=== PATIENT | female | born 1995 | race Asian ===

== ENCOUNTER 2023-12-16 08:00 | Outpatient (CLI) | payer OTHER ==
[2023-12-16 18:40] LABS: BILIRUBIN,URINE NEGATIVE (NEGATIVE); GLUCOSE, URINE (UA) NEGATIVE (NEGATIVE); KETONES,URINE (UA) NEGATIVE (NEGATIVE); LEUKOCYTE ESTERASE, URINE TRACE (NEGATIVE); NITRITE,URINE NEGATIVE (NEGATIVE); OCCULT BLOOD,URINE NEGATIVE (NEGATIVE); PH,URINE 6.5 PH (5.0-7.5); PROTEIN,URINE TRACE mg/dL (NEGATIVE); UROBILINOGEN,URINE 0.2 (NORMAL) E.U./dL (NORMAL)
[2023-12-16 18:47] LABS: CLARITY,URINE CLEAR (CLEAR)
[2023-12-16 19:14] LABS: BACTERIA,URINE Rare /HPF (None Seen); CRYSTALS,URINE 6-10 Calcium Oxalate /LPF; MUCUS,URINE Moderate Strands; RBC,URINE 0-5 /HPF (0-5); SQUAMOUS EPITHELIAL CELL,UR FEW Squamous (<= Few); WBC,URINE 0-3 /HPF (0-5)
== END 2023-12-16 23:59 | disposition home or self-care (01) ==
LOC: LAB.WC 08:00
PROVIDERS: ATTEND Nurse Practitioner
DX: Z34.90 Encounter for supervision of normal pregnancy, unspecified, unspecified trimester (principal)
CPT/HCPCS: 81001; 87086

== ENCOUNTER 2023-12-22 14:40 | Outpatient (CLI) | payer OTHER ==
[2023-12-22 18:22] LABS: BASOPHILS # (AUTO) 0.1 10^3/uL (0.0-0.1); BASOPHILS % (AUTO) 0.7 %; EOSINOPHILS # (AUTO) 0.1 10^3/uL (0.0-0.7); HCT - HEMATOCRIT 40.4 % (37.0-47.0); HGB - HEMOGLOBIN 13.7 g/dL (12.0-16.0); LYMPHOCYTES # (AUTO) 2.3 10^3/uL (1.5-3.5); LYMPHOCYTES % (AUTO) 20.1 %; MEAN CORPUSCULAR HEMOGLOBIN 28.3 pg (27.0-31.0); MEAN CORPUSCULAR HGB CONC 33.9 g/dL (32.0-36.0); MEAN CORPUSCULAR VOLUME 83.5 fL (81.0-99.0); MEAN PLATELET VOLUME 9.8 fL (7.9-10.8); MONOCYTES # (AUTO) 0.9 10^3/uL (0.0-1.0); MONOCYTES % (AUTO) 8.2 %; NEUTROPHILS # (AUTO) 7.9 10^3/uL (1.5-6.6); NEUTROPHILS % (AUTO) 69.5 %; PLT - PLATELET COUNT 435 10^3/uL (130-450); RED BLOOD COUNT 4.84 10^6/uL (4.20-5.40); RED CELL DISTRIBUTION WIDTH 11.9 % (12.0-15.0); WHITE BLOOD COUNT 11.4 x10^3/uL (4.8-10.8)
== END 2023-12-22 14:41 | disposition home or self-care (01) ==
LOC: LAB.N 14:40
PROVIDERS: ATTEND Nurse Practitioner
DX: Z34.90 Encounter for supervision of normal pregnancy, unspecified, unspecified trimester (principal)
CPT/HCPCS: 36415; 84702; 85025; 86592; 86762; 86787; 86803; 86850; 86900; 86901; 87340; 87389

== ENCOUNTER 2023-12-23 08:50 | Outpatient (CLI) | payer OTHER ==
--- NOTE | 2023-12-23 10:27 | Ultrasound Report ---
PROCEDURE: OB 1st Trimester w/TV INDICATIONS: SUPERVISION OF NORMAL OUTSIDE/PRIOR DATING DATA: Last menstrual period (LMP): 10/20/2023. LMP-based estimated date of delivery (HARSH): 07/26/2024. First dating scan (date and location): 12/23/2023. Estimated date of delivery (HARSH) from first dating scan: 07/25/2024. TECHNIQUE: Real-time scanning was performed of the fetus and maternal pelvic organs, with image documentation. Endovaginal scanning was also performed to better visualize the fetus and maternal ovaries. COMPARISON: None. FINDINGS: Intrauterine gestational sac present. Embryo: Present, measuring 2.5 cm, corresponding to 9 weeks 2 days Heart rate: 182 bpm. Other: No perigestational fluid collection. Measurement variability in dating: +/- 4 weeks by LMP, +/- 7 days by mean sac diameter (use before 6 weeks gestation if crown-rump length not able to be measured), +/- 5 days by crown-rump length (6-12 weeks gestation). Maternal organs: The left ovary contains an anechoic cystic lesion with avascular, hypoechoic compone nts with angulated margins. This measures 5.6 x 3.5 x 4.4 cm. IMPRESSION: Single living intrauterine at 9 weeks 2 days, HARSH of 07/25/2024. Left ovary contains an anechoic cystic lesion with avascular, solid components with angulated margins . Findings favor a hemorrhagic cyst over heterotopic . Correlate with beta hCG and consider short-term follow-up. Reviewed by: Kennedy Garcia MD on 12/23/2023 10:26 AM PDT Approved by: Kennedy Garcia MD on 12/23/2023 10:26 AM PDT Station ID: [id number]
== END 2023-12-23 08:51 | disposition home or self-care (01) ==
LOC: DI 08:50
PROVIDERS: ATTEND Nurse Practitioner
DX: Z34.91 Encounter for supervision of normal pregnancy, unspecified, first trimester (principal); R93.89 Abnormal findings on diagnostic imaging of other specified body structures

== ENCOUNTER 2024-01-16 08:00 | Outpatient (CLI) | payer MEDICAID, OTHER ==
[2024-01-16 21:10] LABS: BACTERIAL VAGINOSIS DNA NEGATIVE (NEGATIVE); CANDIDA GLABRATA DNA NEGATIVE (NEGATIVE); CANDIDA GROUP DNA POSITIVE (NEGATIVE); CANDIDA KRUSEI DNA NEGATIVE (NEGATIVE); TRICHOMONAS VAGINALIS DNA NEGATIVE (NEGATIVE)
[2024-01-17 11:55] LABS: CHLAMYDIA TRACHOMATIS DNA NEGATIVE (NEGATIVE); NEISSERIA GONORRHOEAE DNA NEGATIVE (NEGATIVE)
== END 2024-01-16 23:59 | disposition home or self-care (01) ==
LOC: LAB.WC 08:00
PROVIDERS: ATTEND Nurse Practitioner
DX: N89.8 Other specified noninflammatory disorders of vagina (principal)
CPT/HCPCS: 81514; 87491; 87591; 87661

== ENCOUNTER 2024-03-16 16:39 | Outpatient (CLI) | payer MEDICAID ==
--- NOTE | 2024-03-18 21:12 | Ultrasound Report ---
PROCEDURE: OB 14+ Weeks INDICATIONS: SUPERVISION OF OUTSIDE/PRIOR DATING DATA: Last menstrual period (LMP): 10/20/2023. LMP-based estimated date of delivery (HARSH): 07/26/2024. First dating scan (date and location): 12/23/2023. Estimated date of delivery (HARSH) from first dating scan: 07/25/2024. The below data below was generated using the working HARSH of 07/25/2024 TECHNIQUE: Real-time scanning was performed of the fetus, with image documentation and biometric measurements. Endovaginal scanning: Not performed. COMPARISON: 12/23/2023, 12/30/2023 FINDINGS: General: A single living intrauterine gestation is present. Presentation: Breech Placenta: Placental position is posterior, without previa. Amniotic fluid index: 12.1 cm, 22% for gestational age. heart rate: 153 beats per minute. Maternal cervical canal: Closed and measures 5.7 cm long; normal length is 2.5 cm or more. biometrics: Biparietal diameter: 5.01 cm, 21 weeks, 1 day, 43.5% Head circumference: 19.1 cm, 21 weeks, 3 days, 43.3% Abdominal circumference: 15.4 cm, 20 weeks, 4 days, 21.7% Femur length: 3.45 cm, 20 weeks, 6 days, 26.3% Estimated gestational age from initial scan: 21 weeks, 2 days Composite gestational age from present scan: 21 weeks, 1 day Estimated weight and percentile: 377.6 g, 21.2% Measurement variability for biometric dating: +/- 10 days from 12-20 weeks gestation, +/- 2 weeks fro m 20-30 weeks gestation, +/- 3 weeks for 30 weeks gestation or later. Anatomic survey: Neuro: Ventricles are non-dilated at less than 10 mm. Cisterna magna is normal at 3-11 mm. Cerebel lum is normal in size and morphology. Nuchal skin fold: Normal at less than 6 mm between 14-20 weeks gestational age. Face: Nose and lips, facial profile are now well seen due to position. Spine: No evidence for spina bifida. Heart: 4 chamber heart and ventricular outflow tracts are not well seen. Diaphragm: Diaphragm is intact. Stomach: Left-sided stomach is present. Kidneys: No hydronephrosis. Normal is less than 5 mm in 2nd trimester, less than 7 mm in 3rd trimester. Cord: 3-vessel cord has orthotopic insertion. Bladder: Normal in size. Extremities: All 4 extremities are not well evaluated due to position. Patient's known left ovarian cyst is again seen now measures 4.9 x 3.7 x 4.3 cm in size compared to 5 .8 x 3.3 x 4.3 cm in size on previous study. IMPRESSION: 1. Single live intrauterine gestation with fetus in breech presentation. heart rate is 153 bpm. Normal AMOS at 12.1 cm. Estimated weight is at 21.2%. 2. facial profile is, cardiac structures and all 4 extremities are suboptimally evaluated due t o position. Rest of the anatomic survey is normal. 3. Patient's known left ovarian cyst is slightly smaller in size on the current study. Reviewed by: Mark Crouch MD on 03/18/2024 9:10 PM PDT Approved by: Mark Crouch MD on 03/18/2024 9:10 PM PDT Station ID: [id number]
== END 2024-03-16 16:40 | disposition home or self-care (01) ==
LOC: DI 16:39
PROVIDERS: ATTEND Nurse Practitioner
DX: O32.1XX0 Maternal care for breech presentation, not applicable or unspecified (principal); O34.82 Maternal care for other abnormalities of pelvic organs, second trimester; N83.202 Unspecified ovarian cyst, left side; Z3A.21 21 weeks gestation of pregnancy

== ENCOUNTER 2024-07-24 06:48 | Inpatient (IN) ==
[2024-07-24] MEDS ORDERED: hydrALAZINE INJ 20 MG/ML VIAL IVP PRN (07:12)
[2024-07-24] MEDS ORDERED: LACTATED RINGERS 1,000 ML IV PRN (07:12)
[2024-07-24] MEDS ORDERED: NIFEdipine 10 MG CAPSULE PO PRN (07:12)
[2024-07-24] MEDS ORDERED: fentaNYL 100 MCG/2 ML VIAL IVP PRN (07:12)
[2024-07-24] MEDS ORDERED: TERBUTALINE 1 MG/ML VIAL SUBQ PRN (07:12)
[2024-07-24] MEDS ORDERED: METHYLERGONOVINE 0.2 MG/ML VIAL IM PRN (07:12)
[2024-07-24] MEDS ORDERED: TRANEXAMIC ACID IN NACL 1,000 MG/100 ML BAG IV PRN (07:12)
[2024-07-24] MEDS ORDERED: LABETALOL 20 MG/4 ML SYRINGE IVP PRN ×3 (07:12)
[2024-07-24] MEDS ORDERED: lidocaine 1% 20 ML MDV ID PRN (07:12)
[2024-07-24] MEDS ORDERED: SODIUM CHLORIDE FLUSH 0.9% 10 ML SYRINGE IVP PRN (07:12)
[2024-07-24] MEDS ORDERED: ONDANSETRON ODT 4 MG TABLET PO PRN (07:12)
[2024-07-24] MEDS ORDERED: miSOPROStoL 200 MCG TABLET BC PRN (07:12)
[2024-07-24] MEDS ORDERED: miSOPROStoL 200 MCG TABLET PR PRN (07:12)
[2024-07-24] MEDS ORDERED: OXYTOCIN/SODIUM CHLORIDE 500 ML IV PRN (07:12)
[2024-07-24] MEDS ORDERED: CALCIUM CARBONATE CHEW 500 MG TABLET PO PRN (07:12)
[2024-07-24] MEDS ORDERED: ACETAMINOPHEN 500 MG TABLET PO PRN (07:12)
[2024-07-24] MEDS ORDERED: OXYTOCIN 10 UNIT/ML VIAL IM PRN (07:12)
[2024-07-24] MEDS ORDERED: diphenhydrAMINE INJ 50 MG/ML VIAL IVP PRN ×2 (07:12→21:35)
[2024-07-24] MEDS ORDERED: METOCLOPRAMIDE 10 MG/2 ML VIAL IVP PRN ×2 (07:12→21:35)
[2024-07-24] MEDS ORDERED: METOCLOPRAMIDE 10 MG TABLET PO PRN (07:12)
--- NOTE | 2024-07-24 07:58 | HISTORY & PHYSICAL EXAMINATION ---
Admit History Smoking Status: Never smoker NST Procedure NST Procedure: NST Procedure Start Time 00:59 Stop Time 01:26 Meds/Allgy Home Medications Ambulatory Orders Medication Instructions Recorded Confirmed aspirin 81 mg tablet,delayed 81 mg PO QDAY 04/11/24 07/24/24 release fexofenadine 180 mg tablet 180 mg PO QDAY 04/11/24 07/24/24 (Eleanor Allergy) vit no.133-ferrous 1 tab PO ONCE 04/11/24 07/24/24 fumarate 28 mg-folic acid 800 mcg tablet () witch afshan 50 % topical pads 1 pad topical BID PRN skin 04/11/24 07/24/24 (Tucks (witch afshan)) irritation Allergies Allergies Allergy/AdvReac Type Severity Reaction Status Date / Time amoxicillin Allergy Severe Respiratory Verified 07/06/24 15:12 grass pollen Allergy Unknown Respiratory Verified 07/06/24 15:12 [facility] Medical History Medical History (Updated 04/25/24 @ 13:59 by Lauryn Abad) Hypothyroid Ovarian cyst Surgical History Surgical History (Updated 04/25/24 @ 13:59 by Lauryn Abad) History of ankle surgery H/O ovarian cystectomy Family History Family History (System 04/25/24 @ 13:59 by Lauryn Abad) Mother High blood pressure Father High blood pressure Anxiety Maternal grandmother Lung cancer Paternal grandfather Lung cancer CAD (coronary artery disease) Paternal grandmother Osteoporosis Social History Social History (System 04/25/24 @ 13:59 by Lauryn Abad) Smoking Status: Never smoker Do you dip or chew tobacco?: No Plan for Labor Plan For Labor I expect patient to be DC'd or transferred within 96 hours.: Yes Plan for Labor: HPI: Roxann is a 28yo @ 39.5wks gestation who presents to [facility] with c/o continued contractions that have increased in both frequency and intensity over the past 2 days. She presented to [facility] earlier this evening with similar symptoms but states the contractions she is experiencing at this time seem much more intense. She is rating them 10/10 on a pain scale and feels she is getting close to needing an epidural for pain management. She states she has not slept and she is feeling very fatigued and discouraged with the lack of cervical change. She denies vaginal bleeding or leakage of fluid and reports +FM. Upon arrival her cervix is noted to be unchanged from previous exam (/-2) and vertex with intact membranes. Pre- Weight: 149.0 BMI: 24.14 Allergies: Amoxicillin-anaphylaxis RX: Aspirin, Eleanor, Tucks, PNV Medical Hx: Hypothyroidism, Ovarian cyst Surgeries: Ovarian Cysctectomy, ankle surgery Social Hx: Never smoker. No ETOH or IVDA. FMHX: Mother-High blood pressure Father -Anxiety, High blood pressure Maternal grandmother-Lung cancer Paternal grandfather CAD (coronary artery disease); Lung cancer Paternal grandmother Osteoporosis Blood type: O+ Antibody: Negative CBC: PLT 435 HCT 40.4 HGB 13.7 Rubella: Immune VZV: non-immune HBsAg: Neg HepC: NR RPR/AB-EIA: NR HIV: NR PAP: unsure (~2022 WNL, no hx abnormal) GC/CT: 01/16/2024 Negative HSV: denies in self and partner Genetic testing: Declines FAS: 03/18/2024 Placenta: Posterior Cord: 3VC AMOS: 12.1cm EFW: 377.6g 50gm OGCT: 116 TDAP: 05/04/24 Breast Pump: 06/08/2024 RSV: 06/08/2024 3rd trimester PLT 333 HGB 13.2 HCT 40.1 3rd trimester RPR NR GBS: 07/06/2024 Pre- Weight:149.0 BMI: 24.14 Allergies: Amoxicillin RX: Aspirin, Eleanor, Tucks, PNV Surgical hx: Ovarian Cysctectomy, ankle surgery FMHx: Mother-High blood pressure Father -Anxiety, High blood pressure Maternal grandmother-Lung cancer Paternal grandfather CAD (coronary artery disease);Lung cancer Paternal grandmother Osteoporosis Physical Exam: Normocephalic, atraumatic Heart RRR w/o M/G/R Lungs CTAB Abdomen gravid, soft, nontender EFW 3400g FHR baseline 140s, moderate variability, + accels, no decels Contractions palpate mild to moderate every 5--8 minutes with soft resting tone SVE 50/-2, vertex with intact membranes Bilateral LE's no edema Assessment: 28yo @ 39.5wks gestation Early labor GBS positive FHR Category I Plan: Admit to [facility] for active management. Continuous monitoring. Nitrous oxide PRN. Jacuzzi PRN. Epidural per maternal request. Anticipate . Conclusion/Plan Lab Results 07/24/24 07:45 07/24/24 07:45
[2024-07-24 08:03] LABS: BASOPHILS # (AUTO) 0.1 10^3/uL (0.0-0.1); BASOPHILS % (AUTO) 0.3 %; EOSINOPHILS % (AUTO) 0.2 %; HCT - HEMATOCRIT 43.5 % (37.0-47.0); HGB - HEMOGLOBIN 14.4 g/dL (12.0-16.0); LYMPHOCYTES # (AUTO) 1.5 10^3/uL (1.5-3.5); LYMPHOCYTES % (AUTO) 8.9 %; MEAN CORPUSCULAR HEMOGLOBIN 27.4 pg (27.0-31.0); MEAN CORPUSCULAR HGB CONC 33.1 g/dL (32.0-36.0); MEAN CORPUSCULAR VOLUME 82.9 fL (81.0-99.0); MEAN PLATELET VOLUME 10.2 fL (7.9-10.8); MONOCYTES # (AUTO) 0.8 10^3/uL (0.0-1.0); MONOCYTES % (AUTO) 5.1 %; NEUTROPHILS # (AUTO) 14.1 10^3/uL (1.5-6.6); NEUTROPHILS % (AUTO) 84.8 %; PLT - PLATELET COUNT 339 10^3/uL (130-450); RED BLOOD COUNT 5.25 10^6/uL (4.20-5.40); RED CELL DISTRIBUTION WIDTH 13.1 % (12.0-15.0); WHITE BLOOD COUNT 16.6 x10^3/uL (4.8-10.8)
[2024-07-24 08:18] LABS: ALBUMIN 3.7 g/dL (3.2-5.5); ALBUMIN/GLOBULIN RATIO 1.2 (1.0-2.2); BILIRUBIN,TOTAL 0.5 mg/dL (0.2-1.0); CALCIUM 9.1 mg/dL (8.5-10.3); CREATININE 0.5 mg/dL (0.6-1.3); TOTAL PROTEIN 6.9 g/dL (6.4-8.9)
[2024-07-24] MEDS: VANCOMYCIN INJ 2 GM in SODIUM CHLORIDE 0.9% 500 ML IV ONE (12:22)
[2024-07-24] MEDS: FAMOTIDINE 20 MG/2 ML VIAL IVP SCH (12:29)
[2024-07-24] MEDS: SODIUM CHLORIDE FLUSH 0.9% 10 ML SYRINGE IVP SCH (12:29)
--- NOTE | 2024-07-24 12:59 | PROVIDER PROGRESS NOTE ---
Labor Progress Note Uterine Monitoring Uterine Monitoring Mode: positive External toco Contraction Intensity: positive Moderate Monitoring Monitor Mode: positive External ultrasound Heart Rate Baseline: 140 Heart Rate Variability: positive Moderate (6-25 bmp) Accelerations: positive Present, 15x15 Decelerations: positive None Strip Review: positive Category I Vaginal Exam Dilation (in cm): 4 Effacement (%): 80 Station: -1 Cervical Position: Midposition Labor Progress Note Labor Progress Note/Additional Text: S: Roxann is breathing through contractions with use of nitrous oxide for pain management. She is coping well with contractions at this time. She states the contractions eased up for a bit but have now began to increase in intensity over the past hour. Her partner and his mom are both supportive at the bedside. O: FHR baseline 140s, moderate variability, + accels, no decels Contractions palpate moderate every 5-7 minutes with soft resting tone SVE 4/80/-1, vertex AROM occurred and was noted to be a small amount of clear fluid A: 28yo @ 39.5wks gestation Early labor GBS positive FHR Category I P: Continue expectant management. Continuous monitoring. Initiate vancomycin for GBS prophylaxis per protocol (pt is allergic to ampicilin with hx of anaphylaxis). Continue nitrous oxide for pain management. Jacuzzi PRN. Epidural per maternal request. Repeat SVE in 6 hrs or sooner PRN. Anticipate .
--- NOTE | 2024-07-24 14:23 | PHARMACY PROGRESS NOTE ---
Best Possible Medication History Admit Date and Time: 07/24/24 [id number] Home Medications Medication Instructions Recorded Confirmed Type aspirin 81 mg tablet,delayed 81 mg PO DAILY 04/11/24 07/24/24 History release fexofenadine 180 mg tablet 180 mg PO DAILY 04/11/24 07/24/24 History (Eleanor Allergy) vit no.133-ferrous 1 tab PO DAILY 04/11/24 07/24/24 History fumarate 28 mg-folic acid 800 mcg tablet () witch afshan 50 % topical pads 1 pad topical BID PRN skin 04/11/24 07/24/24 History (Tucks (witch afshan)) irritation Processed by: Pharmacy Medications reviewed in ED?: Yes Medication History completed: Yes Patient Interview: Completed Secondary Source(s): Pharmacy records and Insurance records [facility] Statement: As the person ultimately responsible for medication therapy, providers are able to order a medication from an existing home medication list in [facility] via the "Reconcile Routine" prior to Confirmation of that medication by product support consultant. Such practice is discouraged except when the physician, in their clinical judgment, deems that a medical need exists for a medication without regard to p revious use.
[2024-07-24] MEDS: OXYTOCIN/SODIUM CHLORIDE 500 ML IV SCH (16:45)
[2024-07-24] MEDS: LACTATED RINGERS 500 ML IV ONE (20:30)
[2024-07-24] MEDS ORDERED: ROPIVACAINE 0.2% 200 MG/100 ML BAG EP ONE (20:37)
[2024-07-24] MEDS ORDERED: NALBUPHINE 10 MG/ML AMP IVP PRN (21:35)
[2024-07-24] MEDS ORDERED: ONDANSETRON 4 MG/2 ML VIAL IVP PRN (21:35)
[2024-07-24] MEDS ORDERED: ePHEDrine 50 MG/ML VIAL IVP PRN (21:35)
[2024-07-24] MEDS ORDERED: ROPIVACAINE 0.2% 200 MG/100 ML BAG EP PRN (21:35)
[2024-07-24] MEDS ORDERED: NALOXONE 0.4 MG/ML VIAL IVP PRN (21:35)
--- NOTE | 2024-07-24 21:35 | ANESTHESIA PROCEDURE NOTE ---
Pre-Anesthesia VS, & Labs Diagnosis Surgical Diagnosis:: active labor Procedure Procedure: labor epidural Vitals Vital Signs: Temp Pulse Resp BP 36.6 C 89 20 130/83 07/24/24 07:58 07/24/24 07:58 07/24/24 07:58 07/24/24 07:58 NPO NPO: Other (clears) Is Patient ?: Yes Lab Results Current Lab Results: Laboratory Tests 07/24/24 07:45: WBC 16.6 H, RBC 5.25, Hgb 14.4, Hct 43.5, MCV 82.9, MCH 27.4, MCHC 33.1, RDW 13.1, Plt Count 339, MPV 10.2, Neut # (Auto) 14.1 H, Lymph # (Auto) 1.5, Major # (Auto) 0.8, Eos # (Auto) 0.0, Baso # (Auto) 0.1, Absolute Nucleated RBC 0.00, Nucleated RBC % 0.0, Sodium 134 L, Potassium 4.0, Chloride 106, Carbon Dioxide 17 L, Anion Gap 11.0, BUN 8, Creatinine 0.5 L, Estimated GFR (MDRD) 148, Glucose 91, Calcium 9.1, Total Bilirubin 0.5, AST 14, ALT 10, A lkaline Phosphatase 122 H, Total Protein 6.9, Albumin 3.7, Globulin 3.2, Albumin/Globulin Ratio 1.2, Blood Type O POSITIVE, Antibody Screen NEGATIVE 07/24/24 07:45 07/24/24 07:45 Meds/Allgy Home Medications Ambulatory Orders Medication Instructions Recorded Confirmed aspirin 81 mg tablet,delayed 81 mg PO DAILY 04/11/24 07/24/24 release fexofenadine 180 mg tablet 180 mg PO DAILY 04/11/24 07/24/24 (Eleanor Allergy) vit no.133-ferrous 1 tab PO DAILY 04/11/24 07/24/24 fumarate 28 mg-folic acid 800 mcg tablet () witch afshan 50 % topical pads 1 pad topical BID PRN skin 04/11/24 07/24/24 (Tucks (witch afshan)) irritation Allergies Allergies Allergy/AdvReac Type Severity Reaction Status Date / Time amoxicillin Allergy Severe Respiratory Verified 07/06/24 15:12 grass pollen Allergy Unknown Respiratory Verified 07/06/24 15:12 [facility] Medical History Medical History (Updated 04/25/24 @ 13:59 by Lauryn Abad) Hypothyroid Ovarian cyst Surgical History Surgical History (Updated 04/25/24 @ 13:59 by Lauryn Abad) History of ankle surgery H/O ovarian cystectomy Family History Family History (System 04/25/24 @ 13:59 by Lauryn Abad) Mother High blood pressure Father High blood pressure Anxiety Maternal grandmother Lung cancer Paternal grandfather Lung cancer CAD (coronary artery disease) Paternal grandmother Osteoporosis Social History Social History (System 04/25/24 @ 13:59 by Lauryn Abad) Smoking Status: Never smoker Do you dip or chew tobacco?: No Anesthesia Exam (Expanded) Exam General: Alert and Oriented x3 Dental: WNL Mouth Openin Fingerbreadth Neck Mobility: Normal Mallampati classification: II and III Thyromental Distance: less than 4 cm Respiratory: Lungs clear Cardiovascular: Regular rate Plan Plan Anesthesia Type: Epidural Consent for Procedure(s) Verified and Reviewed: Yes Code Status: Attempt Resuscitation ASA Classification ASA classification: 2-Mild systemic disease Is this case an emergency?: No
[2024-07-25] MEDS: VANCOMYCIN INJ 1 GM in SODIUM CHLORIDE 0.9% 250 ML IV SCH (01:22)
[2024-07-25] MEDS ORDERED: HYDROCORTISONE 1% CREAM 28 GM TUBE TOP PRN (04:26)
[2024-07-25] MEDS ORDERED: OXYTOCIN/SODIUM CHLORIDE 500 ML IV PRN (04:26)
[2024-07-25] MEDS ORDERED: WITCH HAZEL/GLYCERIN 1 PAD TOP PRN (04:26)
[2024-07-25] MEDS ORDERED: SIMETHICONE CHEW 80 MG TABLET PO PRN (04:26)
--- NOTE | 2024-07-25 04:33 | DELIVERY NOTE ---
Delivery Note Delivery Outcome Delivery Date: 07/25/24 Delivery Comments (Free Text/Narrative) Delivery Comments (Free Text/Narrative): Labor: This 28yo @ 39.5 wks gestation presented to [facility] in early labor. Cervix was initially 1/50/-3 and vertex and then pt progressed to 4/80/-1. FHR demonstrated Category I pattern throughout labor. AROM occurred on 07/24/2024 at 1222 and was noted to be a small amount of clear fluid.Normal labor course. Epidural placed per maternal request. Pitocin was initiated for augmentation of labor for a maximum infusion rate of 8mU/mL. She progressed to c/c/+2 at 0112 on 07/25/2024 with onset of active pushing at 0159. : Normal SVB of viable female infant on 07/25/2024 @ 0233. No nucal cord. The was placed on maternal abdomen, stimulated, dried, and placed skin to skin. 's were 8/9 at 1 and 5 min respectively. Pitocin administered via IV for hemostasis. The umbilical cord was allowed to stop pulsating at which time it was doubly clamped by CNM and cut by FOB. Cord blood was obtained. 3VC. Fundal massage and gentle cord traction applied for active management of the third stage. Placenta delivered spontaneously and intact at 0243. EBL 350mL. Fourth stage: Uterine fundus firm and there is no excessive bleeding. The perineum, vagina, and cervix were inspected and found to have a 2nd degree vaginal laceration which was repaired using a 2-[address]-1 needle, in standard fashion and under sterile conditions. Vaginal examination following repair was performed. Tissues well approximated. initiated. Both mother and baby were left in stable condition.
[2024-07-25] MEDS: IBUPROFEN 800 MG TABLET PO PRN (06:53)
[2024-07-25] MEDS: ACETAMINOPHEN 500 MG TABLET PO PRN (06:54)
[2024-07-25] MEDS: DOCUSATE SODIUM 100 MG CAPSULE PO SCH (11:11)
[2024-07-26 06:05] VITALS: O2SAT 98
[2024-07-26 09:44] VITALS: BP 120/83; TEMP 98.1
--- NOTE | 2024-07-26 10:05 | Discharge Summary ---
Discharge Summary HOSPITAL COURSE Hospital Course: Brief History: She is a patient of [facility] who presented on 07/24/2024 in early labor. Cervix was 1/50/-2 and vertex with intact membranes and then progressed to 4/80/-1. AROM occurred at 07/24/2024 @ 1222. Epidural was placed per maternal request. She spontaneously progressed to deliver a viable female infant on 07/25/2024 @ 0233. Perineum had a 2nd degree which was repaired using a 2-[address]-1 needle in standard fashion and under sterile conditions. Apgars were 8/9 at 1 and 5 minutes respectively. EBL 350 mL. She has been doing well in her course. She is ambulating and tolerating a regular diet. She is urinating without difficulty and her lochia is normal. Her pain is well controlled with oral medications. She will be discharged home today on day #1 with instructions to continue taking her vitamin while and to continue taking Ibuprofen and Tylenol over the counter as needed for pain management. She intends to follow up with myself at [facility] in 1 week for routine visit or sooner if needed. She has been given precautions to call if she has any worsening fevers, chills, abdominal pain, increased vaginal bleeding or foul smelling vaginal lochia. Physical Exam: Normocephalic, atraumatic. Heart RRR w/o M/G/R, lungs CTAB, abdomen soft and nontender with fundus firm at U, perineum intact, light lochia rubra, bilateral LE's no edema. Mood is good. ALLERGIES Allergies Allergy/AdvReac Type Severity Reaction Status Date / Time amoxicillin Allergy Severe Respiratory Verified 07/06/24 15:12 grass pollen Allergy Unknown Respiratory Verified 07/06/24 15:12 MEDICATIONS Ambulatory Orders Medication Instructions Recorded Confirmed fexofenadine 180 mg tablet 180 mg PO DAILY 04/11/24 07/24/24 (Eleanor Allergy) vit no.133-ferrous 1 tab PO DAILY 04/11/24 07/24/24 fumarate 28 mg-folic acid 800 mcg tablet () witch afshan 50 % topical pads 1 pad topical BID PRN skin 04/11/24 07/24/24 (Iesha (witch afshan)) irritation LABS 07/24/24 07:45 07/24/24 07:45 Discharge Plan Discharge Patient Disposition: 01 Home, Self Care Prescriptions: Continued 28-800 mg-mcg tablet 1 tab PO DAILY fexofenadine [Eleanor Allergy] 180 mg tablet 180 mg PO DAILY Tucks (bridger cavanaugh) 50 % pads, medicated 1 pad topical BID PRN (Reason: skin irritation) Discontinued aspirin 81 mg tablet,delayed release (DR/EC) 81 mg PO DAILY Print Language: Japanese Patient Instructions: Vaginal After, , Self Care
--- NOTE | 2024-07-26 10:49 | Labor Flowsheet ---
Labor Flowsheet Datetime Report Generated by CPN: 07/26/2024 10:49 Datetime: 07/25/2024 10:04 VITAL SIGNS NBP Sys/Divya/Mean (mmHg): 118 : 72 : 81 Pulse: 103 Datetime: 07/25/2024 04:45 SpO2 (%): 99 Datetime: 07/25/2024 02:43 Stage of : Recovery Datetime: 07/25/2024 02:34 UTERINE ACTIVITY Monitor Mode: External Frequency (min): 2-3.5 Quality: Strong Duration (sec): 40-60 Pattern: Normal: <= 5 Contractions in 10 Minutes Resting Tone (Palpate): Relaxed Pitocin Checklist: At Least 1 Acceleration of 15 bpm x 15 Seconds in 30 Minutes or Adequate Variabi lity; No More than 1 Late Deceleration Occurred in Past 30 Minutes; No More than 2 Variable Decelerat ions > 60 Seconds in Duration and decreasing >60 bpm in 30 minutes; No More than 5 Uterine Contractio ns in 10 Minutes for any 20 Minute Interval; Uterus Palpates Soft between Contractions FHR Baseline Rate : 135 Variability: Moderate 6-25 bpm Decelerations: Early; Late Datetime: 07/25/2024 02:30 LaborFlag: Labor Datetime: 07/25/2024 02:15 ASSESSMENT A Monitor Mode: Telemetry Datetime: 07/25/2024 02:00 Monitor Interventions for FHR: Ultrasound Adjusted Accelerations: 15X15 Datetime: 07/25/2024 01:30 FHR Baseline Changes: No Baseline Change Datetime: 07/25/2024 01:12 VAGINAL EXAM Dilatation (cm): 10.0 Effacement (%): 100 Station: 3 Exam by: Bekah Galo, RNC Datetime: 07/25/2024 01:00 Monitor Interventions for UA: Radley Adjusted Datetime: 07/25/2024 00:30 Temperature (C): 37.2 Temperature Route: Axillary Datetime: 07/24/2024 23:38 PATIENT CARE Patient Position/Activity: Right Lateral Hygiene: Underpad Changed Datetime: 07/24/2024 20:57 ANESTHESIA Anesthesia Plans: Epidural Epidural Procedure: Test Dose Datetime: 07/24/2024 20:43 PROCEDURE TIME OUT Procedure Type: 0848 Procedure Verify: Correct Patient Identity; Correct Side and Site are Marked; Accurate Procedure Co nsent Form; Agreement on Procedure to be Done; Correct Patient Position; Relevant Images and Results are Properly Labeled and Displayed; Addressed Need to Administer Antibiotics or Fluids for Irrigation ; Safety Precautions Based on Patient History or Medication Use Epidural Positioning: Sitting Datetime: 07/24/2024 19:57 COMMUNICATION Communication: Provider at Bedside Datetime: 07/24/2024 19:29 Respirations: 18 Datetime: 07/24/2024 18:56 Medication Comments: pitocin dc per pt request Datetime: 07/24/2024 18:45 Category: Category I Datetime: 07/24/2024 17:15 Comments: prolonged accel MEDICATIONS Pitocin (milliunits): Increased to @ 2 Datetime: 07/24/2024 15:55 Communication Comments: CNM Alf notified on patient status, ctx pattern Datetime: 07/24/2024 12:22 Membranes Rupture Method: Artificial Amniotic Fluid Color: Clear Amniotic Fluid Amount: Small Datetime: 07/24/2024 12:20 Antibiotics: Other Antibiotic @ (Annotations: Vancomycin 2g in 500ml) Datetime: 07/24/2024 10:53 Membranes Ruptured Date/Time: 07/24/2024 12:22
== END 2024-07-26 10:48 | disposition home or self-care (01) | DRG 807 ==
LOC: WFO 06:48 → FBP 06:51
PROVIDERS: ADMIT Nurse Practitioner Obstetrics & Gynecology; ATTEND Nurse Practitioner Obstetrics & Gynecology